=== PATIENT | female | born 1940 | race Caucasian/White ===

== ENCOUNTER → 2016-12-06 | Outpatient (CLI) | payer MEDICARE, OTHER ==
[~2016-12-06] MED LIST: ASA325 MG PO; FLEXERIL-DPS10 MG PO; IMDUR DPS30 MG PO; KEFLEX-DPS500 MG PO; LOPRESSOR DPS12.5 MG PO; NEURONTIN DPS600 MG PO; OXY IR DPS5 MG PO; PRILOSEC DPS20 MG PO; SENOKOT S1 TAB PO; TYLENOL DPS325 MG PO; ULTRAM DPS50 MG PO; XANAX DPS0.25 MG PO; ZETIA10 MG PO
== END | disposition home or self-care (01) ==
LOC: PTH.S 09:27
DX: Z01.818 Encounter for other preprocedural examination (principal); R00.1 Bradycardia, unspecified; Z79.2 Long term (current) use of antibiotics; Z86.79 Personal history of other diseases of the circulatory system

== ENCOUNTER 2016-12-16 09:29 | Inpatient (IN) | payer MEDICARE, OTHER ==
[~2016-12-16] VITALS: Ht 152.4 cm; Wt 58.0 kg
--- NOTE | 2016-12-16 13:49 | HP ---
ADMIT: 12/16/2016 RM/LOC: W.02 [facility] MR#: [id number] [address] [address] YOLISDEANNA April [address] [place] [address] Pre-OP History and Physical SEX: F AGE: 76 : 1940 DATE OF SERVICE: CHIEF COMPLAINT: Left knee pain. HISTORY OF PRESENT ILLNESS: This 76-year-old lady presents today for left total knee arthroplasty. She has had a right total knee back in 2011 and has done very well. She has had all the usual conservative care for her right knee including multiple injections and has failed to improve. She now presents for surgical treatment. PAST MEDICAL HISTORY: MEDICATIONS: Include; 1. Zetia. 2. Welchol. 3. Baby aspirin a day. 4. Isosorbide. 5. Prilosec. 6. Alprazolam. 7. Gabapentin. 8. Tramadol. ALLERGIES: NO ALLERGIES TO MEDICINES. FAMILY HISTORY: Positive for heart disease. SOCIAL HISTORY: The patient lives here in [place]. Her family doctor is Dr. Pina. REVIEW OF SYSTEMS: No current respiratory, cardiac, GI, or complaints. PHYSICAL EXAMINATION: This patient has a valgus deformity of the left knee. She has lateral joint line pain and patellofemoral crepitus. RADIOGRAPHS: Radiographs show osteoarthritis of the left knee with joint space narrowing, subchondral sclerosis. IMPRESSION: Osteoarthritis, left knee. RECOMMENDATIONS: Left total knee arthroplasty. The risks, benefits, alternatives, as well as potential complications were discussed. Kirsty Foreman MD/ lizabeth JOB #: [id number] CC: Kirsty Foreman, Attending Physician ADMIT: 12/16/2016 RM/LOC: W.02 [facility] MR#: [id number] 26[address] [facility] [address] [place] [id number] DEANNA LAGOS [address] [place] [address] Pre-OP History and Physical SEX: F AGE: 76 : 1940 Mariana Pina [facility] Physician
--- NOTE | 2016-12-17 07:44 | OR ---
ADMIT: 12/16/2016 RM/LOC: 509 [facility] MR#: [id number] [facility]#: [id number] [address] [address] YOLISANANTHLAURA Chen [address] [place] [address] Operative/Delivery Room Report SEX: F AGE: 76 : 1940 SURGERY DATE: 12/16/2016 SURGEON: Kirsty Foreman MD PREOPERATIVE DIAGNOSIS: Osteoarthritis, left knee. POSTOPERATIVE DIAGNOSIS: Avascular necrosis, left lateral femoral condyle. PROCEDURE: Left total knee arthroplasty. ASSISTED BY: Steven Rodriguez PA-C. ANESTHESIA: Spinal. TOURNIQUET TIME: 40 minutes. ESTIMATED BLOOD LOSS: 25 mL. COMPONENTS: [employer] total knee system with a #3 posterior stabilized lugged femoral, #3 fixed bearing tibial, 8 mm tibial articulate, and 35 mm patella. DESCRIPTION OF PROCEDURE: This patient was brought to the operating room, and after a satisfactory level of anesthesia was achieved, the left lower extremity was prepped and draped in the usual sterile fashion. Under tourniquet ischemia, a midline incision was made over the anterior aspect of the left knee. Dissection was carried through the subcutaneous tissue and skin flaps were made at the level of the joint capsule. A medial parapatellar incision was performed. The patella was everted and the knee flexed. There was marked hypertrophic villous synovitis throughout the knee and multiple fragments of articular cartilage throughout the knee. As the knee was flexed on the lateral femoral condyle, there was a delamination of the articular cartilage and typical findings of osteonecrosis of the lateral femoral condyle. This was responsible for her progressive valgus deformity and increasing pain. Using an intramedullary alignment guide, I made my distal femoral cut at 5 degrees of the long axis of the femur. Then, I used the cutting blocks to prepare the distal femur for a #3 posterior stabilized lugged femoral component. The external alignment guide was then used for my tibial cut. The #3 gave us the best coverage of the proximal tibia. She did have a fair amount of osteoporosis in the distal femur and proximal tibia. With an 8 mm tibial articulate, we had very good range of motion and we had corrected her valgus deformity. The patella was measured, cut, and then prepared for a 35 mm patellar component with 35 mm trial component. The patient had good range of motion and stability. All trial components were removed. She underwent an intraoperative injection of our local anesthetic cocktail for postop pain control, and when completed, all bony surfaces were well irrigated to remove any bone debris and blood clot. Then, using 80 g of [employer] bone cement without antibiotics, all 3 components were cemented into position. The knee was reduced with an 8 mm tibial trial, and ADMIT: 12/16/2016 RM/LOC: 509 [facility] MR#: [id number] [address] [place] [id number] DEANNA LAGOS [address] [place] [address] Operative/Delivery Room Report SEX: F AGE: 76 : 1940 the knee was held in extension and irrigated with warm antibiotic till the cement hardened. I then flexed the knee, removed the trial tibial insert and irrigated the knee. Hemostasis was achieved using electrocautery. Any extruded cement was removed with an osteotome, and any cement debris was irrigated from the knee. I then impacted a #8 tibial insert onto the tibial tray and reduced the knee. Once again, we had very good range of motion and stability. At this point, the remainder of our anesthetic was injected in the usual fashion and the joint was then closed with interrupted #1 Vicryl in the capsule and synovium as a single layer and a running #2 Quill suture in the capsule and synovium. A 2-0 Vicryl in the subcutaneous tissue and then PriNeo was used for the skin after a running subcuticular 3-0 Monocryl. A sterile dressing was applied, and she was then transferred from the operative suite in stable condition. Kirsty Foreman MD/ lizabeth JOB #: [id number] CC: Kirsty Foreman, Attending Physician Mariana Pina, Family Physician
[2016-12-25] MEDS ORDERED: XANAX DPS0.25 MG PO (13:53)
[2016-12-25] MEDS ORDERED: ZETIA10 MG PO (13:53)
[2016-12-25] MEDS ORDERED: NEURONTIN DPS600 MG PO (13:53)
[2016-12-25] MEDS ORDERED: PRILOSEC DPS20 MG PO (13:54)
[2016-12-25] MEDS ORDERED: LOPRESSOR DPS12.5 MG PO (13:54)
[2016-12-25] MEDS ORDERED: ASA325 MG PO (13:54)
[2016-12-25] MEDS ORDERED: IMDUR DPS30 MG PO (13:55)
[2016-12-25] MEDS ORDERED: KEFLEX-DPS500 MG PO (13:55)
[2016-12-25] MEDS ORDERED: TYLENOL DPS325 MG PO (13:55)
[2016-12-25] MEDS ORDERED: SENOKOT S1 TAB PO (13:55)
[2016-12-25] MEDS ORDERED: FLEXERIL-DPS10 MG PO (13:56)
[2016-12-25] MEDS ORDERED: ULTRAM DPS50 MG PO (13:56)
[2016-12-25] MEDS ORDERED: OXY IR DPS5 MG PO (13:57)
--- NOTE | 2017-01-13 11:55 | DS ---
ADMIT: 12/16/2016 RM/LOC: 509 [facility] MR#: [id number] [facility]#: [id number] [address] [address] DEANNA LAGOS [address] [place] [address] General Discharge Summary SEX: F AGE: 76 : 1940 ADMISSION DATE: 12/16/2016 DISCHARGE DATE: 12/19/2016 REASON FOR ADMISSION: Elective left total knee arthroplasty after failing conservative care. ACTIVE MEDICAL PROBLEMS: Hypertension, coronary artery disease, hyperlipidemia, cervical disc disease, and osteoarthritis of the left knee. PREOPERATIVE DIAGNOSIS: Osteoarthritis of the left knee. POSTOPERATIVE DIAGNOSIS: Avascular necrosis of the left lateral femoral condyle. PROCEDURE PERFORMED: Left total knee arthroplasty. SURGEON: Kirsty Foreman MD MANAGER LAND: Steven Rodriguez PA-C ANESTHESIA: Spinal. TOURNIQUET TIME: 40 minutes. ESTIMATED BLOOD LOSS: 25 mL. HOSPITAL COURSE: The patient was admitted on 12/16/2016, for elective left total knee arthroplasty done successfully without any complications by Dr. Kirsty Foreman. The patient tolerated the procedure well. Postoperatively, the patient was complaining of nausea. She was seen by Dr. Collins, who increased her Lopressor to 25 mg p.o. twice a day due to finding an elevated blood pressure. On postop day 1, the patient had no complaints of nausea and felt that her pain was under control. On postoperative day #2, she did experience some swelling in her left knee. JACQUE Pino [facility] was called and instructed the nursing staff to apply an Stanford wrap foot to thigh. By postoperative day #3, the swelling was better, and the patient had no other complaints. She was put on Keflex prophylaxis 500 mg 2 tablets p.o. twice a day for 7 days by Steven Rodriguez and was otherwise safe stable and ready for discharge to a long term facility by postoperative day #3. She also suffers from acute blood loss anemia. Her hemoglobin dropped to 10.3 on 12/18/2016, but she remained hemodynamically stable and did not require blood transfusion. DISCHARGE MEDICATIONS: 1. Aspirin 325 mg every night. 2. Imdur DPS 30 mg daily. 3. Lopressor 25 mg p.o. twice a day. 4. MiraLax 17 g daily. ADMIT: 12/16/2016 RM/LOC: 509 [facility] MR#: [id number] [address] [address] DEANNA LAGOS [address] [place] [address] General Discharge Summary SEX: F AGE: 76 : 1940 5. Neurontin 600 mg 3 times a day. 6. Protonix 40 mg at night. 7. Senokot 1 tablet twice a day. 8. Tylenol 650 mg every 6 hours as needed for pain. 9. Ultram 50 mg every 6 hours as needed for pain. 10.Zetia 10 mg daily. 11.Cepacol DPS 1 lozenge every hour as needed. 12.Colace 100 mg capsule twice a day as needed. 13.Dulcolax DPS 5 mg twice a day as needed. 14.Flexeril 10 mg 3 times a day as needed. 15.Maalox 30 mL every 6 hours as needed. 16.Milk of magnesia 10 mL daily as needed. 17.Oxycodone IR 5 mg 1 to 2 tablets every 2 hours as needed. 18.Xanax 0.25 mg daily as needed. DISCHARGE INSTRUCTIONS: The patient was discharged to long term facility with plans for physical therapy exercises per total knee arthroplasty protocol. Follow up in the orthopedic office in 2 weeks for wound check or earlier if problems arise. Follow up in 6 weeks with x-ray. Follow up with primary care as directed. Michelle M Weihl, PA / Kirsty Foreman MD / lizabeth JOB #: [id number] CC: Kirsty Foreman MD, Attending Physician Mariana Pina MD, Family Physician
== END 2016-12-19 11:35 | DRG 470 ==
LOC: 5MS 09:29 → WOR 09:29 → 5MS 14:17
PROVIDERS: ADMIT Orthopaedic Surgery
PROC: 0SRD0J9 Replacement of Left Knee Joint with Synthetic Substitute, Cemented, Open Approach (ICD-10-PCS; principal; 2016-12-16)
DX: M17.12 Unilateral primary osteoarthritis, left knee (principal); D62 Acute posthemorrhagic anemia; M87.9 Osteonecrosis, unspecified; E78.2 Mixed hyperlipidemia; K21.9 Gastro-esophageal reflux disease without esophagitis; M50.90 Cervical disc disorder, unspecified, unspecified cervical region; F41.9 Anxiety disorder, unspecified; I25.10 Atherosclerotic heart disease of native coronary artery without angina pectoris; Z96.651 Presence of right artificial knee joint; Z79.82 Long term (current) use of aspirin; Z87.891 Personal history of nicotine dependence; Z95.1 Presence of aortocoronary bypass graft; Z82.49 Family history of ischemic heart disease and other diseases of the circulatory system

== ENCOUNTER 2016-12-19 11:50 | Inpatient (IN) | payer MEDICARE, OTHER ==
[~2016-12-19] VITALS: Ht 152.4 cm; Wt 60.0 kg
--- NOTE | 2016-12-20 09:37 | NUR ---
PATIENT NOTE DEANNA HAS BEEN ADMITTED TO [facility] FROM [facility] WHERE SHE UNDERWENT LEFT TOTAL KNEE SURGERY. SHE IS A ALERT, ORIENTED AND VERY PLEASANT 76 YEAR OLD WHO LIVES HERE IN [place] ALONE. HER GOAL/PLAN IS TO RETURN TO HOME AND CONTINUE HER PHYSICAL THERAPY ON AN OUTPT. BASIS. SHE HAS HER OWN WALKER HERE ON THE UNIT. DEANNA IS HERE UNDER HER MEDICARE [employer] WITH THE SKILLED SERVICE BEING PHYSICAL AND OCCUPATIONAL THERAPY. SOCIAL WORK TO FOLLOW AND ASSIST WITH D/C PFLANNING AND WITH CONCERNS OR NEEDS THAT MAY ARISE.
--- NOTE | 2016-12-24 11:40 | NUR ---
MDS 3.0-INTERVIEW/OBSERVATION: PT. IS AMBULATING IN THE HALLWAY INDEPENDENTLY, USE OF 4 WHEELED WALKER AND GAIT IS STEADY. PT. IS ALERT AND ORIENTED. COGNTION IS INTACT. PT. 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 PT. DENIES MUCH PAIN, STATES IT FEELS PRETTY GOOD WHEN I AM WALKING AROUND. DENIES DEPRESSION OR LACK OF CONCENTRATION. STATES GOAL IS TO GO HOME TODAY AND FEELS SHE IS JUST STRONG SINCE SURGURY AND FEELS SHE IS DOING WELL. STATES UNDERSTANDING OF HER LIMITATIONS AND UNDERSTANDS SAFETY WITH USE OF A WALKER WHEN UP AND ABOUT. WISHED HER A GOOD DAY AND GOOD LUCK FOR HOME TODAY.
--- NOTE | 2016-12-24 15:17 | NUR ---
PATIENT NOTE DEANNA HAS BEEN D/C TO HER HOME THIS AFTERNOON, HER FRIEND RASHEL TRANSPORTED HER HOME. DEANNA WILL CONTINUE HER PHYSICAL THERAPY ON AN OUTPT. BASIS. SHE HAS HER OWN WALKER AT HOME AND SHE ASK THAT HER MEDS BE CALLED INTO [facility]. DEANNA REMAINS ALERT AND ORIENTED. SHE VOICED NO CONCERNS WITH HER CARE OR STAY HERE AT SKILLED CARE. MY BUSINESS CARD WAS STAPLED TO HER D/C PAPERS SO SHE CAN CALL WITH CONCERNS ONCE HOME.
[2016-12-25] MEDS ORDERED: NEURONTIN DPS600 MG PO (13:53)
[2016-12-25] MEDS ORDERED: XANAX DPS0.25 MG PO (13:53)
[2016-12-25] MEDS ORDERED: ZETIA10 MG PO (13:53)
[2016-12-25] MEDS ORDERED: ASA325 MG PO (13:54)
[2016-12-25] MEDS ORDERED: PRILOSEC DPS20 MG PO (13:54)
[2016-12-25] MEDS ORDERED: LOPRESSOR DPS12.5 MG PO (13:54)
[2016-12-25] MEDS ORDERED: KEFLEX-DPS500 MG PO (13:55)
[2016-12-25] MEDS ORDERED: SENOKOT S1 TAB PO (13:55)
[2016-12-25] MEDS ORDERED: IMDUR DPS30 MG PO (13:55)
[2016-12-25] MEDS ORDERED: TYLENOL DPS325 MG PO (13:55)
[2016-12-25] MEDS ORDERED: ULTRAM DPS50 MG PO (13:56)
[2016-12-25] MEDS ORDERED: FLEXERIL-DPS10 MG PO (13:56)
[2016-12-25] MEDS ORDERED: OXY IR DPS5 MG PO (13:57)
== END 2016-12-24 14:00 | disposition home or self-care (01) | DRG 561 ==
LOC: SNU 11:50
PROVIDERS: ADMIT Internal Medicine
PROC: F08Z4ZZ Home Management Treatment (ICD-10-PCS; principal; 2016-12-19)
PROC: F07Z9ZZ Gait Training/Functional Ambulation Treatment (ICD-10-PCS; principal; 2016-12-19)
DX: Z47.1 Aftercare following joint replacement surgery (principal); I10 Essential (primary) hypertension; Z96.653 Presence of artificial knee joint, bilateral; F41.9 Anxiety disorder, unspecified; E78.2 Mixed hyperlipidemia; K21.9 Gastro-esophageal reflux disease without esophagitis; M50.90 Cervical disc disorder, unspecified, unspecified cervical region; I25.10 Atherosclerotic heart disease of native coronary artery without angina pectoris; Z95.1 Presence of aortocoronary bypass graft; Z87.891 Personal history of nicotine dependence; Z79.82 Long term (current) use of aspirin; Z82.49 Family history of ischemic heart disease and other diseases of the circulatory system

== ENCOUNTER → 2017-03-19 | Outpatient (CLI) | payer MEDICARE, OTHER ==
--- NOTE | ~2017-03-19 | ECH ---
Transthoracic Echocardiography Report (TTE) Demographics Patient Name DEANNA LAGOS Date of Study 03/19/2017 Patient Number [id number] Visit Number [id number] Date of 1940 Room Number Accession Number [id number] Gender Female Age 77 year(s) Referring Silvana Selby Neonatal Social Worker Elsa Owen [facility] Physician Physician Interpreting Nisha Ching Certified Midwife Physician MD Supervising Ordering Physician Silvana Selby MD/MLP Nurse [employer] Foreman Conclusions Contractility Score Summary Normal Left Ventricular contractility was noted. Summary Technically good exam. The estimated left ventricular ejection fraction is 60-65%. The left atrium is mildly dilated by LA volume index measurement. There is trivial aortic regurgitation by color Doppler. Trivial tricuspid regurgitation by color Doppler. Normal pulmonary pressures. Procedure Type of Study TTE procedure:Echo Complete SF. Procedure Date Date: 03/19/2017 Start: 12:11 PM Technical Quality: Good visualization Indications:Dyspnea with exertion and Coronary artery disease. Additional Indications:History of stent Appropriate Use Criteria: 9 Height: 60 inches Weight: 126 pounds BSA: 1.53 m Rhythm: Sinus bradycardia HR: 55 bpm BP: 148/80 mmHg M-Mode/2D Measurements LV Diastolic Dimension: 4.97 cm LV Systolic Dimension: 3.73 cm LV Septum Diastolic: 0.66 cm LV PW Diastolic: 0.76 cm AO Root Dimension: 2.89 cm Cardiac Output: 3.14 l/min LA Dimension: 3.16 cm Cardiac Index: 2.05 l/min*m RV Diastolic Dimension: 3.77 cm LA volume index: 36 ml/m LVOT: 1.83 cm LVOT VTI: 21.73 cm RV Base: 3.2 cm LV Stroke volume: 57.13 ml RV Mid: 2.1 cm LV Stroke volume index: 37.34 ml/m TAPSE: 2.7 cm TDI-S': 15 cm/s Doppler Measurements AV Peak Velocity: 1.75 m/s MV Peak E-Wave: 0.81 m/s AV Peak Gradient: 12.22 mmHg MV Peak A-Wave: 0.64 m/s AV Mean Gradient: 6.72 mmHg MV E/A Ratio: 1.25 LVOT Peak Velocity: 0.91 m/s MV P1/2t: 64.9 msec AV Area (Continuity):1.54 cm MV Deceleration Time: 207.2 msec TR Velocity:2.6 m/s MV Area (PHT): 3.39 cm TR Gradient:27.04 mmHg PV Peak Velocity: 0.99 m/s Estimated RAP:3 mmHg PV Peak Gradient: 3.94 mmHg Estimated RVSP: 30 mmHg Estimated PASP: 30.04 mmHg E' Septal Velocity: 0.07 m/s A' Septal Velocity: 0.06 m/s E' Lateral Velocity: 0.08 m/s A' Lateral Velocity: 0.07 m/s RA Area: 13.83 cm Findings Left Ventricle Normal left ventricle size and function. Diastolic assessment reveals normal relaxation. Right Ventricle Normal right ventricle structure and function. Left Atrium The left atrium is mildly dilated by LA volume index measurement. Right Atrium Normal right atrial size. Mitral Valve Normal mitral valve structure and function. Mild mitral regurgitation by color Doppler. Aortic Valve Normal aortic valve structure and function. There is trivial aortic regurgitation by color Doppler. Tricuspid Valve Normal tricuspid valve structure and function. Trivial tricuspid regurgitation by color Doppler. Normal pulmonary pressures. Pulmonic Valve Normal pulmonic valve structure and function. Pericardial Effusion No evidence of pericardial effusion. Miscellaneous Visualized portions of the aortic root appear normal in size. Ascending aorta not visualized. Pleural Effusion No evidence of pleural effusion. Contractility Score LV regional wall motion:(0-Non visualized 1-Normal 2-Hypokinesis 3-Akinesis 4-Dyskinesis 5-Aneurysm) Signature
== END | disposition home or self-care (01) ==
LOC: CARD 11:53
DX: I25.10 Atherosclerotic heart disease of native coronary artery without angina pectoris (principal); R06.09 Other forms of dyspnea; I51.7 Cardiomegaly; I35.1 Nonrheumatic aortic (valve) insufficiency; I07.1 Rheumatic tricuspid insufficiency; Z95.5 Presence of coronary angioplasty implant and graft